=== PATIENT | female | born 1960 | race Caucasian/White ===

== ENCOUNTER 2019-10-15 18:39 | Emergency (ER) | payer OTHER ==
[2019-10-15] MEDS ORDERED: BABY ASPIRIN 81 MG CHEW ONE (19:07)
[2019-10-15] MEDS ORDERED: Sodium Chloride 0.9% 1000 ML 1,000 ML ONE (19:08)
[2019-10-15 19:09] LABS: BASOPHIL % 0.3 % (0.0-0.4); Basophil (Absolute #) 0.02 (0-0.4); Eosinophil % 0.8 % (0.00-5.0); Eosinophil (Absolute #) 0.05 (0-0.5); Hematocrit 43.3 % (35-47); Hemoglobin 14.5 gm/dl (12.0-16.0); Lymphocyte (Absolute #) 2.48 (1.0-4.6); Lymphocytes % 38.6 % (24.0-44.0); Mean Cell Volume 91.9 fl (78-100); Mean Corpuscular Hemoglobin 30.8 pg (26-32); Mean Corpuscular Hgb Concent. 33.5 g/dl (32-36); Mean Platelet Volume 9.8 fl (7.5-11.0); Monocyte (Absolute #) 0.57 (0.0-1.3); Monocytes % 8.9 % (0.0-12.0); Neutrophil % 51.4 % (36.0-66.0); Platelet Count 191 K/mm3 (150-450); Red Blood Count 4.71 M/mm3 (4.1-5.4); Red Cell Distribution Width 12.9 % (11.5-14.0); White Blood Count 6.4 K/mm3 (4.0-10.5)
[2019-10-15] MEDS: BABY ASPIRIN 81 MG CHEW PO ONE (19:11)
[2019-10-15] MEDS: Sodium Chloride 0.9% 1000 ML 1,000 ML IV SCH (19:11)
[2019-10-15 19:28] LABS: ALKALINE PHOSPHATASE 117 U/L (38-126); ANION GAP 8.3 MEQ/L (5-15); BLOOD UREA NITROGEN 15 mg/dL (7-17); CHLORIDE 103 mmol/L (98-107); Calcium 9.4 mg/dL (8.4-10.2); Carbon Dioxide 31 mmol/L (22-30); Glucose 169 mg/dL (74-106); NT PRO BNP 55.8 pg/mL (0-900); Potassium 4.1 mmol/L (3.5-5.1); SGOT/AST 44 U/L (14-36); SGPT/ALT 37 U/L (0-35); SODIUM 138 mmol/L (137-145); Total Protein 7.7 g/dL (6.3-8.2)
--- NOTE | 2019-10-15 19:33 | ERPHSYRPT ---
- History of Present Illness Historian: patient, family Exam Limitations: no limitations Patient Subjective Stated Complaint: pt here for pain to left side of chest since the of this month,she was seen at [place] that day and was told a spasm. she states it is not any better, no fever, no cough, Triage Nursing Assessment: pt alert, walked in, resp easy, chest clear, abd soft , moves all ext well, pt has swelling to left side of her chest which she states has been that way for a while now but is getting worse Physician History: Patient is 59-year-old female who overall is fairly healthy. Patient was just recently diagnosed with diabetes but otherwise denies any heart disease or high blood pressure or high cholesterol. Patient is here for left-sided chest pain that radiates down into her abdomen. She does have 2 hernias which appear to be either hiatal and ventral/umbilical. They are waiting for her to lose weight to get the umbilical hernia fixed. The pain started about 4 days ago while she was at rest. Patient was seen at [place] and was ruled out for anything cardiac and was told that it was costochondritis. Also of note is that patient has what appears to be a soft mass on the superior aspect of her left anterior chest. This is a chronic thing. She may have been diagnosed with lipoma after scan was done but she is not completely sure. This apparently has been pushing and pulling whenever she twists and turns in bed or in with movement in general. Pain is not worse with eating. Patient states shortness of breath only when the pain comes on. Patient is a non-smoker and does not drink or do drugs. Timing/Duration: day(s) (4) Activities at Onset: activity, emotional stress Quality: cramping, stabbing, tightness Location: other (left anterior chest) Chest Pain Radiation: abdomen Severity of Pain-Max: moderate Severity of Pain-Current: mild Modifying Factors: Improves With: movement Associated Symptoms: abdominal pain, shortness of breath, swelling/lump in chest Prior Chest Pain/Cardiac Workup: non-cardiac, recently seen/treated (3 days ago) Nitro Today/Relief: no nitro taken today Aspirin Treatment Today: no aspirin today Allergies/Adverse Reactions: No Known Drug Allergies Allergy (Unverified 10/15/19 18:54) Home Medications: Ergocalciferol (Vitamin D2) [Vitamin D] 1 ea WEEKLY 10/15/19 [History] Fluoxetine HCl 10 mg [Prozac 10 mg] 10 mg DAILY 10/15/19 [History] Liraglutide [Victoza 2-Mihir] 1.2 mg SQ DAILY 10/15/19 [History] glyBURIDE [Glyburide] 5 mg DAILY 10/15/19 [History] Hx Influenza Vaccination/Date Given: No Hx Pneumococcal Vaccination/Date Given: No Immunizations Up to Date: Yes - Review of Systems Constitutional: No Fever, No Chills Eyes: No Symptoms Ears, Nose, & Throat: No Symptoms Respiratory: Dyspnea, No Cough Cardiac: Chest Pain, No Edema, No Syncope Abdominal/Gastrointestinal: No Abdominal Pain, No Nausea, No Vomiting, No Diarrhea Genitourinary Symptoms: No Dysuria Musculoskeletal: No Back Pain, No Neck Pain Skin: No Rash Neurological: No Dizziness, No Focal Weakness, No Sensory Changes Psychological: No Symptoms Endocrine: No Symptoms Hematologic/Lymphatic: Adenopathy All Other Systems: Reviewed and Negative - Past Medical History Pertinent Past Medical History: Yes Endocrine Medical History: Diabetes Type II GI Medical History: Hernia - Past Surgical History Past Surgical History: Yes Gastrointestinal: Appendectomy, Cholecystectomy Female Surgical History: Tubal Ligation - Social History Smoking Status: Never smoker Exposure to second hand smoke: Yes (occ) Drug Use: none Patient Lives Alone: No - Female History Hx Last Menstrual Period: post - Nursing Vital Signs Nursing Vital Signs: Initial Vital Signs Temperature 97 F 10/15/19 18:39 Pulse Rate 74 10/15/19 18:39 Respiratory Rate 24 10/15/19 18:39 Blood Pressure 125/57 10/15/19 18:39 O2 Sat by Pulse Oximetry 97 10/15/19 18:39 Pain Scale Pain Intensity 0 - Physical Exam General Appearance: mild distress, alert, anxiety Eye Exam: PERRL/EOMI, eyes nml inspection Ears, Nose, Throat Exam: normal ENT inspection, moist mucous membranes Neck Exam: normal inspection, non-tender, supple, full range of motion Respiratory Exam: normal breath sounds, lungs clear, other (Soft immobile appearing mass in the deep tissues. No overlying skin changes. Tender to palpation.), No respiratory distress Cardiovascular Exam: regular rate/rhythm, normal heart sounds Gastrointestinal/Abdomen Exam: soft, No tenderness, No mass Pelvic Exam: not done Rectal Exam: deferred Back Exam: normal inspection, No CVA tenderness, No vertebral tenderness Extremity Exam: normal inspection, normal range of motion Neurologic Exam: alert, oriented x 3, cooperative, normal mood/affect, sensation nml, No motor deficits Skin Exam: normal color, warm, dry SpO2: 97 - Course Nursing assessment & vital signs reviewed: Yes EKG Interpreted by Me: Sinus Rhythm, LAFB, NORMAL INTERVALS, Non-specific ST Changes - Radiology Exams Chest X-ray Interpretation: Discussed w/ radiologist, Negative Ordered Tests: Active Orders 24 hr Category Date Time Status Lean Engineer STAT Care 10/15/19 18:50 Active EKG-ER Only STAT Care 10/15/19 18:49 Active IV Insertion STAT Care 10/15/19 18:49 Active CHEST 1 VIEW (PORTABLE) Stat Exams 10/15/19 18:50 Completed CBC W DIFF Stat Lab 10/15/19 19:07 Completed CMP Stat Lab 10/15/19 19:07 Completed NT PRO BNP Stat Lab 10/15/19 19:07 Completed TROPONIN Q3H Lab 10/15/19 19:07 Completed TROPONIN Q3H Lab 10/15/19 21:57 Completed Medication Summary Discontinued Medications Generic Name Dose Route Start Last Admin Trade Name Freq PRN Reason Stop Dose Admin Aspirin 81 mg 10/15/19 18:49 10/15/19 19:11 Baby Aspirin 81 Mg Chew PO 10/15/19 18:50 81 mg STAT ONE Administration Aspirin Confirm 10/15/19 19:07 Baby Aspirin 81 Mg Chew Administered 10/15/19 19:08 Dose 324 mg .ROUTE .STK-MED ONE Sodium Chloride 1,000 mls @ 100 mls/hr 10/15/19 19:00 10/15/19 19:11 Sodium Chloride 0.9% 1000 Ml IV 11/14/19 18:59 100 mls/hr .Q10H JENNY Administration Sodium Chloride Confirm 10/15/19 19:08 Sodium Chloride 0.9% 1000 Ml Administered 10/15/19 19:09 Dose 1,000 mls @ ud .ROUTE .STK-MED ONE Lab/Rad Data: Laboratory Result Diagrams 10/15/19 19:07 10/15/19 19:07 Laboratory Results 10/15/19 10/15/19 10/15/19 Range/Units 21:57 19:07 19:07 WBC (4.0-10.5) K/mm3 RBC (4.1-5.4) M/mm3 Hgb (12.0-16.0) gm/dl Hct (35-47) % MCV (78-100) fl MCH (26-32) pg MCHC (32-36) g/dl RDW (11.5-14.0) % Plt Count (150-450) K/mm3 MPV (7.5-11.0) fl Gran % (36.0-66.0) % Eos # (Auto) (0-0.5) Absolute Lymphs (auto) (1.0-4.6) Absolute Monos (auto) (0.0-1.3) Lymphocytes % (24.0-44.0) % Monocytes % (0.0-12.0) % Eosinophils % (0.00-5.0) % Basophils % (0.0-0.4) % Absolute Granulocytes (1.4-6.9) Basophils # (0-0.4) Sodium 138 (137-145) mmol/L Potassium 4.1 (3.5-5.1) mmol/L Chloride 103 (98-107) mmol/L Carbon Dioxide 31 H (22-30) mmol/L Anion Gap 8.3 (5-15) MEQ/L BUN 15 (7-17) mg/dL Creatinine 0.80 (0.52-1.04) mg/dL Estimated GFR > 60.0 ML/MIN Glucose 169 H (74-106) mg/dL Calcium 9.4 (8.4-10.2) mg/dL Total Bilirubin 0.70 (0.2-1.3) mg/dL AST 44 H (14-36) U/L ALT 37 H (0-35) U/L Alkaline Phosphatase 117 (38-126) U/L Troponin I < 0.012 < 0.012 (0.000-0.034) ng/mL NT-Pro-B Natriuret Pep 55.8 (0-900) pg/mL Serum Total Protein 7.7 (6.3-8.2) g/dL Albumin 4.0 (3.5-5.0) g/dL 10/15/19 Range/Units 19:07 WBC 6.4 (4.0-10.5) K/mm3 RBC 4.71 (4.1-5.4) M/mm3 Hgb 14.5 (12.0-16.0) gm/dl Hct 43.3 (35-47) % MCV 91.9 (78-100) fl MCH 30.8 (26-32) pg MCHC 33.5 (32-36) g/dl RDW 12.9 (11.5-14.0) % Plt Count 191 (150-450) K/mm3 MPV 9.8 (7.5-11.0) fl Gran % 51.4 (36.0-66.0) % Eos # (Auto) 0.05 (0-0.5) Absolute Lymphs (auto) 2.48 (1.0-4.6) Absolute Monos (auto) 0.57 (0.0-1.3) Lymphocytes % 38.6 (24.0-44.0) % Monocytes % 8.9 (0.0-12.0) % Eosinophils % 0.8 (0.00-5.0) % Basophils % 0.3 (0.0-0.4) % Absolute Granulocytes 3.30 (1.4-6.9) Basophils # 0.02 (0-0.4) Sodium (137-145) mmol/L Potassium (3.5-5.1) mmol/L Chloride (98-107) mmol/L Carbon Dioxide (22-30) mmol/L Anion Gap (5-15) MEQ/L BUN (7-17) mg/dL Creatinine (0.52-1.04) mg/dL Estimated GFR ML/MIN Glucose (74-106) mg/dL Calcium (8.4-10.2) mg/dL Total Bilirubin (0.2-1.3) mg/dL AST (14-36) U/L ALT (0-35) U/L Alkaline Phosphatase (38-126) U/L Troponin I (0.000-0.034) ng/mL NT-Pro-B Natriuret Pep (0-900) pg/mL Serum Total Protein (6.3-8.2) g/dL Albumin (3.5-5.0) g/dL - Progress Progress: improved Air Movement: good Progress Note: 10/15/19 22:36 Unlikely cardiac etiology. Appears to be more chest wall and possibly GI. Patient does have hernias. Patient can obviously be found to have umbilical or ventral hernia. Patient probably has hiatal hernia as well. Had long discussion about the mass in her left upper chest. Most likely lipoma or something similar. Advised consultation and immediate removal if possible. Patient states she does not want to due to fear of not waking up after general anesthesia. Also has plans for the ventral and umbilical hernia. Unfortunately she has to drop 150 pounds in order to get the surgery done. Appears that the left anterior chest mass is the reason for her chest pain. She probably has some gastritis as well concurrently. 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 Keith for the left chest wall mass. Monitor symptoms closely. Weight loss as discussed. Follow-up with your PCP in 2 to 3 days for recheck. Return to ER if worse.
--- NOTE | 2019-10-15 20:17 | XRAY ---
Indication: Chest pain. Comparison: None Portable chest underinflated with right base discoid atelectasis/scarring. Remaining heart, lungs, and bony thorax unremarkable.
[2019-10-15 22:38] VITALS: BP 150/86; PULSE 68
[2019-10-15 22:39] VITALS: O2SAT 97
== END 2019-10-15 22:48 | disposition home or self-care (01) ==
LOC: ED 18:39
DX: D17.1 Benign lipomatous neoplasm of skin and subcutaneous tissue of trunk (principal); K29.70 Gastritis, unspecified, without bleeding
CPT/HCPCS: 36000; 36415; 71045; 80053; 83880; 84484; 85025; 93005; 93041; 96360; 96361; 99284; A9270-GY